=== PATIENT | male | born 1980 | race African-American/Black ===

== ENCOUNTER 2017-09-28 10:44 | Emergency (ER) | payer BC ==
[~2017-09-28] VITALS: Ht 182.9 cm; Wt 99.1 kg
[2017-09-28 11:43] LABS: HEMATOCRIT 41.4 % (38.0-50.0); MCH 27.8 PG (29.0-34.0); MCHC 33.8 G/DL (30.0-36.0); MCV 82.1 FL (86-99); PLATELET COUNT 177 K/uL (156-360); RBC DIS.WIDTH-CV 12.5 % (11.8-14.6); RBC DIS.WIDTH-SD 37.3 % (39-53); RED BLOOD COUNT 5.04 M/uL (4.00-5.50); WHITE BLOOD COUNT 5.7 K/uL (4.1-10.2)
[2017-09-28 11:51] LABS: CHLORIDE 107 mEq/L (99-109); POTASSIUM 4.2 mEq/L (3.7-5.4); SODIUM 139 mEq/L (136-147)
[2017-09-28 11:53] LABS: GLUCOSE 98 mg/dL (70-99)
[2017-09-28 11:58] LABS: GFR ESTIMATE (CALCULATED) > 59 mL/min/ (58.99-99999); UREA NITROGEN (BUN) 14 mg/dL (9-23)
[2017-09-28] MEDS ORDERED: ZITHROMAX Z-PA250 MG PO (14:26)
[2017-09-28 14:50] VITALS: BP 137/81
== END 2017-09-28 14:52 | disposition home or self-care (01) ==
LOC: EME 10:44
DX: J44.9 Chronic obstructive pulmonary disease, unspecified (principal)
CPT/HCPCS: 71046; 80048; 85027; 94640; 99281; 99284